=== PATIENT | female | born 1940 | race Caucasian/White ===

== ENCOUNTER 2016-10-20 11:31 | Outpatient (CLI) | payer OTHER ==
[~2016-10-20 11:31] MED LIST: ASPIRIN ADULT L81 M1 PO; EYE VITAMINS; IBUPROFEN200 MG PO; MULTIPLE VITAMIN PO; PRAVASTATIN SOD40 MG; PROBIOTI1 PO
--- NOTE | 2016-10-20 12:56 | DIAGNOSTIC IMAGING REPORT ---
PROCEDURE: XR CHEST 2 VIEW INDICATION: ACUTE BRONCHITIS TECHNIQUE: PA and lateral views. COMPARISON: Chest 10/23/2015 and 07/07/2012 FINDINGS: There is a left lower lobe infiltrate visible at the left costophrenic angle. Heart and mediastinum are normal. Thorax is normal. IMPRESSION: 1. Left lower lobe costophrenic angle infiltrate. Results were called to Dr. Cast at 01:00 p.m.
== END 2016-10-20 23:00 ==
LOC: XR SRH 11:31
DX: J20.9 Acute bronchitis, unspecified (principal); R91.8 Other nonspecific abnormal finding of lung field